=== PATIENT | male | born 1955 | race Caucasian/White ===

== ENCOUNTER 2017-07-09 14:56 | Emergency (ER) | payer MEDICAID | END 2017-07-09 20:17 | disposition home or self-care (01) | LOC: D.ER 14:56 | DX: S30.0XXA Contusion of lower back and pelvis, initial encounter (principal); W19.XXXA Unspecified fall, initial encounter; Y93.31 Activity, mountain climbing, rock climbing and wall climbing; Y92.89 Other specified places as the place of occurrence of the external cause; S30.810A Abrasion of lower back and pelvis, initial encounter; S50.811A Abrasion of right forearm, initial encounter ==

== ENCOUNTER 2018-05-25 15:20 | Emergency (ER) | payer MEDICAID ==
[~2018-05-25] VITALS: Ht 180.3 cm; Wt 81.8 kg
[2018-05-25 15:26] VITALS: Ht 180.3 cm; Wt 81.8 kg
[2018-05-25 16:09] LABS: BASOPHILS 0.1 % (0-2); EOSINOPHILS 0.1 % (0-7); HEMATOCRIT 42.1 % (42.0-54.0); IMMATURE GRANULOCYTES 0.2 % (0-5); LYMPHOCYTES 11.6 % (15-50); MCH 29.7 pg (26.0-34.0); MCHC 33.3 g/dL (31.0-37.0); MCV 89.4 fL (80.0-100.0); MEAN PLATELET VOLUME 10.8 fL (7.4-10.4); MONOCYTES 10.4 % (2-11); NEUTROPHILS 77.6 % (40-80); PLATELET COUNT 129 10x3/uL (130-400); RBC 4.71 10x6/uL (4.20-6.10); RDW 13.2 % (11.5-14.5); WBC 12.1 10x3/uL (4.8-10.8)
[2018-05-25 16:11] LABS: ALBUMIN 3.5 g/dL (3.4-5.0); ANION GAP 12.8 mmol/L (8-16); BILIRUBIN - TOTAL 1.31 mg/dL (0.2-1.3); CALCIUM 8.3 mg/dL (8.5-10.1); CARBON DIOXIDE 26.9 mmol/L (21.0-32.0); CREATININE - SERUM 1.1 mg/dL (0.6-1.3); POTASSIUM - SERUM 3.7 mmol/L (3.5-5.1); PROTEIN - SERUM 7.6 g/dL (6.4-8.2)
[2018-05-25 16:45] LABS: APPEARANCE CLEAR (CLEAR); BILIRUBIN NEGATIVE (NEGATIVE); COLOR DK YELLOW (YELLOW); GLUCOSE 500 mg/dL (NEGATIVE); KETONE NEGATIVE (NEGATIVE); NITRITE NEGATIVE (NEGATIVE); PROTEIN NEGATIVE (NEGATIVE); UROBILINOGEN NORMAL (NORMAL)
[2018-05-25 16:46] LABS: RED CELLS - URINE 0-5 /hpf (0-5); WHITE CELLS - URINE 0-5 /hpf (0-5)
[2018-05-25 16:47] LABS: BACTERIA FEW /hpf (NONE SEEN); MUCUS <1+ /lpf (NONE SEEN)
[2018-05-25 17:04] LABS: UDS - AMPHET POSITIVE QUAL (NEGATIVE); UDS - BARB NEGATIVE QUAL (NEGATIVE); UDS - BENZO NEGATIVE QUAL (NEGATIVE); UDS - COCAINE NEGATIVE QUAL (NEGATIVE); UDS - OPIATE NEGATIVE QUAL (NEGATIVE); UDS - PCP NEGATIVE QUAL (NEGATIVE); UDS - THC NEGATIVE QUAL (NEGATIVE)
[2018-05-25 19:39] VITALS: BP 140/79
== END 2018-05-25 19:40 | disposition home or self-care (01) ==
LOC: D.ER 15:20
PROVIDERS: Family Medicine
DX: E86.0 Dehydration (principal)

== ENCOUNTER 2018-09-30 15:41 | Emergency (ER) | payer MEDICAID ==
[~2018-09-30] VITALS: Ht 180.3 cm; Wt 81.8 kg
[2018-09-30 15:45] VITALS: Ht 180.3 cm; Wt 81.8 kg
[2018-09-30 17:06] LABS: BASOPHILS 0.2 % (0-2); HEMATOCRIT 37.6 % (42.0-54.0); HEMOGLOBIN 12.7 g/dL (13.5-17.5); IMMATURE GRANULOCYTES 0.4 % (0-5); MCH 29.7 pg (26.0-34.0); MCHC 33.8 g/dL (31.0-37.0); MCV 87.9 fL (80.0-100.0); MEAN PLATELET VOLUME 10.3 fL (7.4-10.4); MONOCYTES 7.5 % (2-11); NEUTROPHILS 83.9 % (40-80); RBC 4.28 10x6/uL (4.20-6.10); WBC 10.4 10x3/uL (4.8-10.8)
[2018-09-30 17:07] LABS: PLATELET COUNT 195 10x3/uL (130-400)
[2018-09-30 17:29] LABS: ALBUMIN 2.9 g/dL (3.4-5.0); ALKALINE PHOSPHATASE 178 U/L (46-116); ALT (SGPT) 30 U/L (10-68); BILIRUBIN - TOTAL 0.48 mg/dL (0.2-1.3); CALC OSMOLALITY 278 mosm/kg (275-300); CALCIUM 8.2 mg/dL (8.5-10.1); CARBON DIOXIDE 25.9 mmol/L (21.0-32.0); CHLORIDE - SERUM 105 mmol/L (98-107); CREATININE - SERUM 0.8 mg/dL (0.6-1.3); PROTEIN - SERUM 7.5 g/dL (6.4-8.2); SODIUM 137 mmol/L (136-145); UREA NITROGEN 18 mg/dL (7-18); eGFR NON AFRICAN AMERICAN > 90 mL/min (90-120)
[2018-09-30 17:31] LABS: GLUCOSE 144 mg/dL (74-106)
[2018-09-30 17:42] LABS: CKMB 1.3 U/L (0.0-3.6); CREATINE KINASE 65 UL (21-232); PRO BNP 506 pg/mL (0-125)
[2018-09-30 17:43] LABS: TROPONIN-I < 0.017 ng/mL (0.000-0.060)
[2018-09-30] MEDS ORDERED: TORADOL10 MG PO (18:20)
[2018-09-30 18:30] VITALS: BP 122/73
== END 2018-09-30 18:31 | disposition home or self-care (01) ==
LOC: D.ER 15:41
PROVIDERS: Emergency Medicine
DX: R07.81 Pleurodynia (principal)

== ENCOUNTER → 2019-02-12 10:49 | Outpatient (CLI) | payer MEDICAID ==
[2018-09-30 15:45] VITALS: BMI 25.1
--- NOTE | ~2019-02-12 | ST ---
PATIENT:ANTONIO CROSS MEDICAL RECORD: [id number] SEX: M LOCATION:[facility] ORDER #: ADMISSION DATE: 02/12/19 AGE OF PATIENT: 63 REFERRING PHYSICIAN: INTERPRETING PHYSICIAN: DENNIS ALEJANDRE MD DATE OF SERVICE: 02/12/2019 PROCEDURE: Nuclear stress test. INDICATION: Angina, abnormal ECG. He was exercised on standard Moiz protocol for 7 minutes 30 seconds achieving greater than 85% max target heart rate response with 32 mCi of sestamibi injected at peak stress, 10 mCi were used previously for rest images. FINDINGS: Gated SPECT reveals an excellent ejection fraction at 56% with good wall motion thickening and brightness throughout the segments. SPECT IMAGING: Cardiolite was used for a myocardial perfusion agent. There is homogeneous uptake throughout all segments at rest and stress with no evidence of inducible ischemia or previous infarction. OVERALL IMPRESSION: This is a normal rest-stress Cardiolite with no evidence of inducible ischemia or previous infarction. At this time I would evaluate noncardiac etiology of chest pain. TRANSINT:[id number] Voice Confirmation ID: [id number] DOCUMENT ID: [id number] DENNIS ALEJANDRE MD CC: [id number] DICTATION DATE: 02/12/19 1605 MARKETING ANALYTICS SPECIALIST: 02/13/19 0709 DEP CLI 02/12/19 [place] [id number] [place] [id number]
[~2019-02-12 10:49] MED LIST: TORADOL10 MG PO
== END | disposition home or self-care (01) ==
LOC: D.HCCARDIO 10:30
PROVIDERS: ATTEND Internal Medicine Interventional Cardiology
DX: I20.9 Angina pectoris, unspecified (principal)

== ENCOUNTER 2019-03-11 12:36 | Outpatient (CLI) | payer MEDICAID ==
[~2019-03-11] VITALS: Ht 180.3 cm; Wt 78.6 kg
--- NOTE | ~2019-03-11 | HEMODYNAMI ---
PATIENT:ANTONIO CROSS MEDICAL RECORD: [id number] : 59 LOCATION:[facility] ADMISSION DATE: 03/11/19 Generatedon:03/11/201915:29 Patient name: ANTONIO CROSS Patient #: [id number] SSN: : Date of study: 03/11/2019 Page: Of Hemodynamic Procedure Report Patient Data Patient Demographics Procedure consent was obtained First Name: ANTONIO Gender: Male Last Name: TAY : 1955 [facility] Initial: DAVONTE Age: 63 year(s) Patient #: [id number] Race: Unknown Additional ID: [id number] Contact details Address: [address] [place] [address] State: [place] City: [facility] Zip code: [address] Past Medical History Allergies Allergen Reaction Date Comments Reported Other allergy 03/11/2019 NKDA Admission Admission Data Admission Date: 03/11/2019 Admission Time: 12:36 Lab Results Lab Result Date: 03/11/2019 Lab Result Time: 13:00 Biochemistry Name Units Result Min Max BUN mg/dl 16 --(---*)-- 7 18 Creatinine mg/dl 0.9 --(-*--)-- 0.6 1.3 CBC Name Units Result Min Max Hematocrit % 40.9 -*(----)-- 42 54 Hemoglobin g/dl 13.8 --(*---)-- 13.5 17.5 Procedure Procedure Types Cath Procedure Diagnostic Procedure LHC LHC w/Coronaries Procedure Description Procedure Date Procedure Date: 03/11/2019 Procedure Start Time: 15:16 Procedure End Time: 15:24 Procedure Staff Name Function Pablo Bear MD Performing Physician Lux Singh RT Monitor Letty Cabrera RT Scrub Faiza Hunter RN Nurse Procedure Data Cath Procedure Fluoroscopy Diagnostic fluoroscopy Total fluoroscopy Time: 1.2 time: 1.2 min min Diagnostic fluoroscopy Total fluoroscopy dose: 382 dose: 382 mGy mGy Contrast Material Contrast Material Type Amount (ml) Isovue 370 46 Entry Location Entry Primary Successful Side Size Upsize Upsize Entry Closure Succes sful Closure Location (Fr) 1 (Fr) 2 (Fr) Remarks Device Remarks Femoral Right 5 Fr Exoseal artery Estimated blood loss: 5 ml Diagnostic catheters Device Type Used For End Catheter Placement MULTIPACK JL 4.0 5Fr Procedure catheter MULTIPACK 3DRC 5Fr Procedure catheter MULTIPACK Pigtail 5 Fr Procedure catheter Procedure Complications No complications Procedure Medications Medication Administration Route Dosage Oxygen etCO2 Nasal cannula 2 l/min Lidocaine 2% added to field 20 Heparin Flush Bag added to field 2 bags (1000units/500ml NS) 0.9% NaCl I.V. 100 ml/hr Versed I.V. 1 mg Fentanyl I.V. 50 mcg Hemodynamics Rest HGB: 13.8 (g/dl) Heart Rate: 77 (bpm) Pressure Samples Time Site Value (mmHg) Purpose Heart Use Rate(bpm) 15:21 LV 109/5,6 Snapshot 75 Gradients Valve Time Site Site Mean SEP/DFP Peak To Heart Use 1 2 (mmHg) (sec/min) Peak Rate (mmHg) (bpm) Aortic 15:21 LV AO 70 Snapshots Pre Cath Intra NCS Post Cath Vital Signs Time Heart Resp SPO2 etCO2 NIBP (mmHg) Rhythm Pain Sedation Rate (ipm) (%) (mmHg) Status Level (bpm) 15:10:29 77 30 98 26.9 130/84(108) NSR 0 (11) 10(A) , No pain 15:14:37 78 26 97 14.2 127/80(100) NSR 0 (11) 10(A) , No pain 15:18:43 74 17 97 9.7 125/82(100) NSR 0 (11) 9(A) , No pain 15:22:47 73 17 96 11.9 119/84(98) NSR 0 (11) 9(A) , No pain 15:27:13 73 16 98 20.2 126/81(93) NSR 0 (11) 10(A) , No pain Medications Time Medication Route Dose Verified Delivered Reason Notes Eff ectiveness by by 15:08:59 Oxygen etCO2 2 Pablo Kendall used for Nasal l/min [facility] Garry Hunter prototype model maker cannula 15:09:06 Lidocaine 2% added 20ml Pablo Shah for local to vial St Garry Bear anesthetic field MD BARR 15:09:12 Heparin Flush added 2 Pablo Shah used for Bag to bags MarianelaGarry Bear procedure (1000units/500ml field MD BARR NS) 15:09:22 0.9% NaCl I.V. 100 Pablo Kendall Per ml/hr St Garry Hunter RN physician 15:15:25 Versed I.V. 1 mg Pablo Kendall for St Garry Hunter RN sedation 15:15:31 Fentanyl I.V. 50 Pablo Kendall for mcg St Garry Hunter RN sedation Procedure Log Time Note 14:52:43 Signed procedure consent form obtained from patient. 14:52:45 Diagnostic Cath status Elective 14:52:46 Time tracking: Regular hours (M-F 7:00 - 5:00) 14:52:49 Plan of Care:Hemodynamics will remain stable., Cardiac rhythm will remain stable., Comfort level will be maintained., Respiratory function will remain adequate., Patient/ family verbilizes understanding of procedure., Procedure tolerated without complication., Recovers from procedure without complications.. 14:54:46 Letty Cabrera RT(R) sent for patient. Start room use. 14:59:11 Patient received from Pre/Post Procedure Room to CCL 2 Alert and oriented. Tansferred to table in Supine position. 14:59:12 Warm blankets applied, and fela hugger turned on for patient comfort. 14:59:13 Correct patient and procedure confirmed by team. 14:59:13 ECG and BP/O2 sat monitors applied to patient. 15:08:59 Oxygen 2 l/min etCO2 Nasal cannula was administered by Faiza Hunter RN; used for procedure; 15:09:06 Lidocaine 2% 20ml vial added to field was administered by Pablo Bear MD; for local anesthetic; 15:09:12 Heparin Flush Bag (1000units/500ml NS) 2 bags added to field was administered by Pablo Bear MD; used for procedure; 15:09:22 0.9% NaCl 100 ml/hr I.V. was administered by Faiza Hunter RN; Per physician; 15:09:25 Vital chart was started 15:11:49 Baseline sample Acquired. 15:11:56 Rhythm: sinus rhythm 15:11:57 Full Disclosure recording started 15:12:10 H&P Date Dictated: 03/11/2019 Within 30 days and on chart., H&P Addendum completed by physician on day of procedure. (MUST COMPLETE FOR ALL OUTPATIENTS). 15:12:18 Pre-procedure instructions explained to patient. 15:12:19 Pre-op teaching completed and patient verbalized understanding. 15:12:20 Family in waiting room. 15:12:22 Patient NPO since Breakfast. 15:12:37 Patient allergic to Other allergyNKDA 15:13:08 Is the patient allergic to Iodine/contrast media? No. 15:13:09 Is patient on blood thinner?No 15:13:09 Patient diabetic? No. 15:13:11 Previous problem with sedation/anesthesia? No ? 15:13:13 Snore? Yes 15:13:14 Sleep apnea? No 15:13:15 Deviated septum? No 15:13:16 Opens mouth fully? Yes 15:13:17 Sticks out tongue? Yes 15:13:18 Airway obstruction? No ? 15:13:26 Dentures? No ? 15:13:30 Pre procedure: right dorsailis pedis pulse 1+ Palpable, but thready & weak; easily obliterated 15:13:32 Patient pain scale 0/10 ?. 15:13:38 IV patent on arrival in right wrist with 0.9% NaCl at [facility]. 15:14:18 Lab Result : BUN 16 mg/dl 15:14:18 Lab Result : Creatinine 0.9 mg/dl 15:14:18 Lab Result : Hemoglobin 13.8 g/dl 15:14:18 Lab Result : Hematocrit 40.9 % 15:14:20 Lab results completed and on chart. 15:14:24 Right groin area was prepped with chlora-prep and draped in sterile fashion 15:14:25 Alarms reviewed by R. N. 15:14:25 Sharps counted by scrub and verified by R.N. 15:14:28 Use device set Femoral Dx 15:14:29 ACIST Syringe (01836) opened to sterile field. 15:14:29 Bag Decanter (2002S) opened to sterile field. 15:14:30 Medline Cath Pack ([id number]) opened to sterile field. 15:14:31 ACIST Hand Control (24939) opened to sterile field. 15:14:31 ACIST Manifold (17637) opened to sterile field. 15:14:32 Tegaderm 4 x 4 (1626W) opened to sterile field. 15:14:33 SHEATH 5FR [place] (SSF099) opened to sterile field. 15:14:34 DIAGNOSTIC Multipack 5Fr catheter set (NR8988) opened to sterile field. 15:14:34 DIAGNOSTIC WIRE .035 260cm J wire (345853) opened to sterile field. 15:14:40 Physician arrived 15:14:41 --------ALL STOP TIME OUT------ 15:14:41 Final Timeout: patient, procedure, and site verified with staff and physician. All members of the team are in agreement. 15:14:42 Right groin site verified by team. 15:14:44 Maximum allowable Isovue 300 dose 300ml. Physician notified. (300ml for normal creatinines. For patients with creatinine of 1.7 or higher multiply weight(kg) x 5 divided by creatinine.) 15:14:47 Fire Safety Assessment: A--An alcohol-based skin anteseptic being used preoperatively., C--Open oxygen or nitrous oxide is being used., D--An ESU, laser, or fiber-optic light is being used. 15:14:50 Physical assessment completed. ASA score P 2 - A patient with mild systemic disease as per Pablo Bear MD. 15:14:52 Sedation plan: IV Moderate Sedation Medication:Versed, Fentanyl 15:15:25 Versed 1 mg I.V. was administered by Faiza Hunter RN; for sedation; 15:15:31 Fentanyl 50 mcg I.V. was administered by Faiza Hunter RN; for sedation; 15:16:24 Procedure started. 15:16:26 Local anesthetic to right femoral artery with Lidocaine 2% by Pablo Bear MD.INITIAL ACCESS ONLY 15:16:32 A 5 Fr sheath was inserted into the Right Femoral artery 15:16:44 A MULTIPACK JL 4.0 5Fr catheter was advanced over the wire and used for Procedure. 15:16:46 Zero performed for pressure channel P1 15:16:50 Zero performed for pressure channel P1 15:16:54 Zero performed for pressure channel P1 15:16:59 Zero performed for pressure channel P1 15:17:02 Zero performed for pressure channel P1 15:17:12 Zero performed for pressure channel P1 15:17:23 Zero performed for pressure channel P1 15:17:42 LCA angiography performed. 15:18:32 Catheter exchanged over wire. 15:18:37 A MULTIPACK 3DRC 5Fr catheter was advanced over the wire and used for Procedure. 15:19:51 RCA angiography performed. 15:20:04 Catheter exchanged over wire. 15:20:06 A MULTIPACK Pigtail 5 Fr catheter was advanced over the wire and used for Procedure. 15:21:17 LV gram done using MALDONADO 15:21:31 EF : 55 % 15:21:32 LV hemodynamics recorded. 15:21:35 Injector settings: Ml/sec: 10, Volume: 20, 15:21:36 Catheter removed. 15:21:37 EXOSEAL 5Fr (EX500) opened to sterile field. 15:21:47 Sheath removed intact; hemostasis achieved with Exoseal to the Right Femoral artery. 15:21:49 Procedure ended.(Physican Out) 15:21:52 Contrast amount:Isovue 370 46ml. 15:21:56 Fluoroscopy time 01.20 minutes. 15:22:13 Fluoroscopy dose: 382 mGy 15:22:13 Flurop Dose total: 382 15:22:14 Sharps counted by scrub and verified by R.N. 15:22:16 Insertion/operative site no bleeding no hematoma. 15:22:18 Post-op/insertion site Right Femoral artery dressed using a 4 x 4 and Tegaderm. 15:22:24 Post right femoral artery:stable, soft, clean and dry 15:22:29 Post Procedure Pulses reassessed and unchanged 15:22:32 Post-procedure physical assessment completed. ASA score P 2 - A patient with mild systemic disease as per Pablo Bear MD. 15:22:34 Post procedure rhythm: unchanged. 15:22:37 Estimated blood loss: 5 ml 15:22:38 Post procedure instruction explained to patient.Patient verbalizes understanding. 15:22:38 Patient needs reinforcement of post procedure teaching. 15:24:19 Procedure and supply charges have been captured, reviewed, submitted and are correct. 15:24:21 Procedure Complication : No complications 15:24:23 Vital chart was stopped 15:24:23 See physician's report for complete and final results. 15:24:28 Report given to Pre/Post Procedure Room. 15:24:31 Patient transfered to Pre/Post Procedure Room with Stretcher. 15:24:33 Procedure ended. 15:24:33 Full Disclosure recording stopped 15:24:38 End room use (Document Last) Device Usage Item Name Manufacture Quantity Catalog Hospital Part Current Minimal L ot# / Number Charge Number Stock Stock Serial# Code ACIST Acist 1 15279 [id number] 993538 603788 20 Syringe Medical (36948) Systems Inc Bag Microtek 1 2001S 429218 73203 726859 5 Decanter Medical Inc. (2001S) Medline Medline 1 [id number] 118475 36500 125713 5 Cath Pack ([id number]) ACIST Hand Acist 1 36666 982495 019477 858742 5 Control Medical (39497) Systems Inc ACIST Acist 1 16497 965097 556393 011712 5 Manifold Medical (07396) Systems Inc Tegaderm 4 3M 1 1626W 479545 996981 753778 5 x 4 (1626W) SHEATH 5FR Terumo 1 FOQ684 911349 914402 667104 5 [place] (WKW406) DIAGNOSTIC Cardinal 1 DO2056 928266 53090 252244 30 Multipack Health 5Fr catheter set (GG3856) DIAGNOSTIC St [facility] 1 329793 806275 690026 284876 30 WIRE .035 260cm J wire (899537) MULTIPACK Cardinal 1 778757 5 JL 4.0 5Fr Health catheter MULTIPACK Cardinal 1 820994 5 3DRC 5Fr Health catheter MULTIPACK Cardinal 1 114657 5 Pigtail 5 Health Fr catheter EXOSEAL 5Fr Cardinal 1 EX500 599607 364731 084045 10 (EX500) Health Signature Audit [place] Stage Time Signature Unsigned Intra-Procedure 03/11/2019 Lux Singh 3:29:22 PM RT(R) Signatures Monitor : Lux Singh RT Signature : Date : Time : [facility] [address] [place] [id number]
[2019-03-11] MEDS ORDERED: ZESTRIL10 MG PO (12:47)
[2019-03-11 12:54] VITALS: BP 137/87; Ht 180.3 cm; Wt 78.6 kg
[2019-03-11 14:10] LABS: BASOPHILS 0.4 % (0-2); EOSINOPHILS 3.1 % (0-7); HEMATOCRIT 40.9 % (42.0-54.0); HEMOGLOBIN 13.8 g/dL (13.5-17.5); LYMPHOCYTES 27.6 % (15-50); MCH 29.4 pg (26.0-34.0); MCHC 33.7 g/dL (31.0-37.0); MCV 87.2 fL (80.0-100.0); MEAN PLATELET VOLUME 10.4 fL (7.4-10.4); MONOCYTES 11.5 % (2-11); NEUTROPHILS 57.4 % (40-80); PLATELET COUNT 173 10x3/uL (130-400); RBC 4.69 10x6/uL (4.20-6.10); RDW 13.8 % (11.5-14.5); WBC 4.9 10x3/uL (4.8-10.8)
[2019-03-11 14:47] LABS: CALC OSMOLALITY 286 mosm/kg (275-300); CALCIUM 8.3 mg/dL (8.5-10.1); CARBON DIOXIDE 23.9 mmol/L (21.0-32.0); CHLORIDE - SERUM 108 mmol/L (98-107); CREATININE - SERUM 0.9 mg/dL (0.6-1.3); POTASSIUM - SERUM 3.8 mmol/L (3.5-5.1); SODIUM 144 mmol/L (136-145); UREA NITROGEN 16 mg/dL (7-18); eGFR NON AFRICAN AMERICAN > 90 mL/min (90-120)
[2019-03-11 14:51] LABS: GLUCOSE 82 mg/dL (74-106)
--- NOTE | 2019-03-11 15:40 | NUR ---
PT ARRIVED BY WHEELCHAIR. PLACED ON MONITORS. NO S/S OF DISTRESS NOTED. VSS. RIGHT GROIN DRESSING C/D/I. ASSESSMENT COMPLETED. FAMILY AT BEDSIDE.
--- NOTE | 2019-03-11 15:54 | NUR ---
PT RESTING COMFORTABLY. RIGHT GROIN DRESSING C/D/I. NO S/S OF HEMATOMA NOTED. RIGHT PEDAL PULSE PALPABLE. FAMILY AT BEDSIDE.
--- NOTE | 2019-03-11 16:30 | NUR ---
RIGHT GROIN DRESSING C/D/I. NO S/S OF HEMATOMA NOTED. HEAD OF BED INC TO 30 DEGREES. TOLERATED WELL. PT SET UP WITH SANDWICH TRAY AND DRINK. MORE ALERT. FAMILY AT BEDSIDE. VSS.
--- NOTE | 2019-03-11 17:04 | NUR ---
PT TOLERATED SANDWICH AND DRINK. NO C/O NAUSEA. RIGHT GROIN DRESSING C/D/I. NO S/S OF HEMATOMA NOTED. RIGHT HAND PIV D/C'D WITH CATH TIP INTACT. PT TOLERATED WELL. PT INSTRUCTED TO GET UP AND GET DRESSED. FAMIILY AT BEDSIDE TO ASSIST.
--- NOTE | 2019-03-11 17:18 | NUR ---
PT AMBULATED TO RESTROOM. VOIDED WITHOUT DIFFICULTY. DISCUSSED DISCHARGE INSTRUCTIONS WITH PT AND PT'S FAMILY. THEY VOICED UNDERSTANDING.
--- NOTE | 2019-03-11 17:20 | NUR ---
PT TAKEN OUT TO VEHICLE BY WHEELCHAIR. NO S/S OF DISTRESS NOTED. ALL BELONGINGS AND PAPERWORK IN HAND.
--- NOTE | 2019-03-12 13:17 | OP ---
PATIENT NAME: ANTONIO CROSS MEDICAL RECORD: [id number] :59 LOCATION:D.[facility] ADMISSION DATE: SURGEON: JOZEF BORDEN MD DATE OF OPERATION: 03/11/2019 PROCEDURE: Left heart catheterization, selective coronary angiography, right femoral approach. CATHETERS: A 5-Gabonese sheath, 5/4 left and right Jennie, 5/4 pig. The procedure was well tolerated. The patient was returned to the fink. Sheath was removed. ExoSeal device was placed. FINDINGS: Left ventriculography in 30-degree MALDONADO view; normal wall motion and normal systolic function. CORONARY ANATOMY: LEFT MAIN: Left main is free of disease. LAD: Free of disease in the diagonal system. CIRCUMFLEX: Free of disease in the marginal system. RIGHT CORONARY ARTERY: Dominant artery, gives rise to PDA, free of disease. IMPRESSION: Normal LV systolic function. Normal coronary anatomy. TRANSINT:[id number] Voice Confirmation ID: [id number] DOCUMENT ID: [id number] JOZEF BORDEN MD at 1317 CC: [id number] DICTATION DATE: 03/11/19 1527 WIG SALES CONSULTANT: 03/11/19 1740 DEP CLI 03/11/19 [place] [address] [place] [address]
== END 2019-03-11 17:20 | disposition home or self-care (01) ==
LOC: D.CATH 12:36
PROVIDERS: ATTEND Internal Medicine Interventional Cardiology
DX: I20.9 Angina pectoris, unspecified (principal); Z01.812 Encounter for preprocedural laboratory examination